=== PATIENT | female | born 1935 | race African-American/Black ===

== ENCOUNTER → 2018-02-12 | Outpatient (CLI) | payer MEDICARE ==
[~2018-02-12] MED LIST: ASPIRIN81 MG PO; ATORVASTATIN CA10 MG PO; CICLOPIROX15 GM TOP; COLACE100 MG PO; DIOVAN HCT 80-1 EACH PO; ECONAZOLE NITRA15 GM TOP; EVISTA60 MG PO; FENOFIBRATE160 MG PO; LEVOTHYROXINE50 MCG PO; LEXAPRO10 MG PO; METFORMIN HCL500 M2 PO; METOPROLOL TART25 MG PO; PAIN RELIEF500 MG PO; TRIAMCINOLONE A15 G1 TOP; ZETIA10 MG PO
--- NOTE | 2018-02-12 10:25 | Diagnostic Imaging Report ---
PROCEDURE:US THYROID COMPARISON:Patients [facility], CT, CT SOFT TISSUE NECK W, 12/24/2016, 14:03. Patients [facility], US, US THYROID, 11/30/2016, 9:40. INDICATIONS:Thyroid nodule followup TECHNIQUE:Hawkins scale color Doppler ultrasound thyroid FINDINGS: The patient is status post thyroidectomy. No conspicuous residual thyroid tissue. No regional lymphadenopathy. CONCLUSION: Postoperative sequela of thyroidectomy without abnormality. Dictated by: Pritesh Jang M.D. on 02/12/2018 at 10:25 Electronically approved by: Pritesh Jang M.D. on 02/12/2018 at 10:25
== END ==
LOC: US 09:29
PROVIDERS: ATTEND Otolaryngology
DX: E04.2 Nontoxic multinodular goiter (principal)
CPT/HCPCS: 76536